=== PATIENT | male | born 1985 | race Caucasian/White ===

== ENCOUNTER 2016-09-19 00:09 | Emergency (ER) | payer OTHER ==
--- NOTE | 2016-09-19 02:11 | ED ORDER SUMMARY ---
..... Patient: ZULLY SUTTON OrderSheet [facility] VisitID: [id number] [place] [address] 31y, M Registration Date/Time: 09/19/2016 ORDER SHEET Weight: 58.9 kg (stated) Allergies: No Known Drug Allergy GENERAL ORDERS: UA-Culture if indicated Urgent (00:29 09/19/2016 EInderbitzen R.N. verbal order read back to Lexus OVALLES) (Ack 0:31 Elleekimana) (0:48 EInderbitzen R.N.) CBC w Diff Urgent (00:48 09/19/2016 EInderbitzen R.N. verbal order read back to Lexus OVALLES) (Ack 0:52 Joseegekimana) (1:14 EInderbitzen R.N.) BMP Urgent (00:48 09/19/2016 EInderbitzen R.N. verbal order read back to Lexus OVALLES) (Cancelled: Other0:49 EInderbitzen R.N.) CMP Urgent (00:50 09/19/2016 EInderbitzen R.N. verbal order read back to Lexus OVALLES) (Ack 0:52 Elleekimana) (1:14 EInderbitzen R.N.) Lipase Urgent (01:13 09/19/2016 Lexus OVALLES) (Ack 1:25 CHategekimana) (2:22 EInderbitzen R.N.) MEDICATION ORDERS: IV FLUIDS: ORDER SHEET NOTES: [Electronically signed by Staci Cutler R.N. (02:22 09/19/2016)] [Electronically signed by Leo Lawler MD (12:10 09/20/2016)] [Electronically locked/signed by Staci Cutler R.N. (02:22 09/19/2016)]
--- NOTE | 2016-09-19 02:11 | ED NURSING NOTES ---
Clinical Report - Nurses [place] [address] [place] [address] 09/19/2016 0:11 Patient: ZULLY SUTTON TRIAGE Triage time 00:Sep 19 2016. Acuity: LEVEL 3. Chief Complaint: ABDOMINAL PAIN. 00:22 09/19/16. SEPSIS SCREEN: Sepsis Screen. Negative (no infection suspected/documented). --00:22 Staci Cutler R.N. 00:22 09/19/16. BP: 114/80. HR: 70. RR: 16. O2 saturation: 100%. Temp: 97.4 F. Pain level now 10/10. --00:22 Staci Cutler R.N. Weight: 58.9 kg stated. Height/Length: 68 inches Per Patient. BMI: 19.7. --00:17 Staci Cutler R.N. Medications Ventolin HFA Inhalation. --00:17 Staci Cutler R.N. Allergies No Known Drug Allergy. --00:17 Staci Cutler R.N. Medication/allergy information source: the patient. --00:22 Staci Cutler R.N. History Arrived by private vehicle. Historian: patient. Accompanied by family. This started today. ( sudden onset right upper quadrant pain at 1930 , waxing and waining intensity. worse by driving, walking, movement). No nausea, vomiting, diarrhea, constipation or fever. Last oral intake by patient was (dinner). Treatment MAILING MACHINE OPERATOR: None. SOCIAL HX: Does not smoke less than 1 pack per day. Does not smoke cigarettes. History of drug use: marijuana. No alcohol use. No recent travel. No infectious disease exposure. No known contact with a sick individual. ABUSE ASSESSMENT: No report of abuse. SELF HARM ASSESSMENT: A self harm assessment was performed. The patient answered "no" to the question "Have you recently felt down, depressed, or hopeless?", "Have you noticed less interest or pleasure in doing things?", "Do you have thoughts of harming or killing yourself?", "Are you here because you tried to hurt yourself?", "Have you ever tried to hurt yourself before today?", "Have you recently had thoughts about harming or killing others?" and "Do you have any dangerous items in your possession?". NUTRITIONAL RISK ASSESSMENT: The nutritional risk assessment revealed no deficiencies. FUNCTIONAL ASSESSMENT: Functional assessment: no impairments noted. LEARNING NEEDS ASSESSMENT: The learning needs assessment revealed no barriers. SKIN INTEGRITY ASSESSMENT: Skin integrity risk assessment completed. No skin integrity risk identified. --00:22 Staci Cutler R.N. PROBLEMS: Asthma. --00:17 Staci Cutler R.N. ADDITIONAL SURGERIES: no known surgeries. Interventions ID band on patient. --00:22 Staci Cutler R.N. PHYSICAL ASSESSMENT 00:25 09/19/16. Ambulatory to room. GENERAL / NEURO / PSYCH: Alert. Oriented X 4. Appears in no acute distress. HEENT: Mucous membranes are pink. RESPIRATORY: Respirations not labored. Breath sounds within normal limits. CVS: Capillary refill less than 2 seconds. GI / : Abdomen soft. Abdominal tenderness in the right upper quadrant. Guarding present. Guarding present. No rebound tenderness, abdominal distention or mass present in the abdominal region. No nausea noted. SKIN: Skin is warm and dry. --00:25 Staci Cutler R.N. NURSING PROGRESS NOTES 00:25 09/19/16. The plan of care for this patient includes an assessment with efforts to address impairment of the gastrointestinal system. This plan of care was discussed with the patient. Patient gowned. Reassurance given. Patient identifiers checked. Call light placed in reach. Side rails up x 1. Bed placed in lowest position. Brakes of bed on. Patient ready for evaluation. --00:25 Staci Cutler R.N. 00:35 09/19/16. Patient ID band checked for patient name and birthdate: patient confirmed. Instructions provided to collect clean catch urine and patient verbalized understanding. Clean catch urine collected with return of yellow-colored clear urine; sample sent to lab for urinalysis. Specimen labeled in the presence of the patient. --00:44 Staci Cutler R.N. 00:35 09/19/2016 Site #1 started via IV in the right forearm with an 20g angiocath, with aseptic technique and good blood return; one attempt. Blood drawn: rainbow set. Labeled in the presence of the patient and sent to the lab. Saline lock flushed with 10 mL saline. --00:44 Staci Cutler R.N. 01:41 09/19/16. The patient is calm and resting quietly. --01:41 Staci Cutler R.N. 01:41 09/19/16. BP: 107/52. HR: 58. RR: 16. O2 saturation: 100%. Temp: 97.9 F. Pain level now 06/27. --01:41 Staci Cutler R.N. DISPOSITION / DISCHARGE 02:15 09/19/2016 Site #1 removed upon discharge. Catheter intact. Pressure dressing applied. --02:19 Staci Cutler R.NFrantz 02:17 09/19/16. Condition at departure: improved and stable. The goals identified in the patient's plan of care were met. No learning barriers present. Discharge instructions provided and reviewed with the patient. Reviewed referral to a primary care physician for followup and testing. Summary of care provided to patient via paper. Patient verbalized understanding. Written instructions provided in Ukrainian. The patient was discharged home and accompanied by beam warper. He left the Emergency Department ambulatory and via private vehicle. Commodities Broker driving. FALL RISK ASSESSMENT: Fall risk assessment completed. No fall risk identified. --02:20 Staci Cutler R.N. 01:39 09/19/16. BP: 107/52. HR: 58. RR: 16. O2 saturation: 100%. Temp: 97.9 F. Pain level now 06/27. 00:17 09/19/16. BP: 114/80. HR: 70. RR: 16. O2 saturation: 100%. Temp: 97.4 F. Pain level now 03/27. --02:20 Staci Cutler R.N. Departure time: 02:Sep 19 2016. --02:21 Staci Cutler R.N. Locked/Released at 09/19/2016 2:22 by Staci Cutler R.N.
--- NOTE | 2016-09-19 02:11 | ED NURSING NOTES ---
Clinical Report - Nurses [place] [address] [place] [address] 09/19/2016 0:11 Patient: ZULLY SUTTON TRIAGE Triage time 00:Sep 19 2016. Acuity: LEVEL 3. Chief Complaint: ABDOMINAL PAIN. 00:22 09/19/16. SEPSIS SCREEN: Sepsis Screen. Negative (no infection suspected/documented). --00:22 Staci Cutler R.N. 00:22 09/19/16. BP: 114/80. HR: 70. RR: 16. O2 saturation: 100%. Temp: 97.4 F. Pain level now 10/10. --00:22 Staci Cutler R.N. Weight: 58.9 kg stated. Height/Length: 68 inches Per Patient. BMI: 19.7. --00:17 Staci Cutler R.N. Medications Ventolin HFA Inhalation. --00:17 Staci Cutler R.N. Allergies No Known Drug Allergy. --00:17 Staci Cutler R.N. Medication/allergy information source: the patient. --00:22 Staci Cutler R.N. History Arrived by private vehicle. Historian: patient. Accompanied by family. This started today. ( sudden onset right upper quadrant pain at 1930 , waxing and waining intensity. worse by driving, walking, movement). No nausea, vomiting, diarrhea, constipation or fever. Last oral intake by patient was (dinner). 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 SOCIAL HX: Does not smoke less than 1 pack per day. Does not smoke cigarettes. History of drug use: marijuana. No alcohol use. No recent travel. No infectious disease exposure. No known contact with a sick individual. ABUSE ASSESSMENT: No report of abuse. SELF HARM ASSESSMENT: A self harm assessment was performed. The patient answered "no" to the question "Have you recently felt down, depressed, or hopeless?", "Have you noticed less interest or pleasure in doing things?", "Do you have thoughts of harming or killing yourself?", "Are you here because you tried to hurt yourself?", "Have you ever tried to hurt yourself before today?", "Have you recently had thoughts about harming or killing others?" and "Do you have any dangerous items in your possession?". NUTRITIONAL RISK ASSESSMENT: The nutritional risk assessment revealed no deficiencies. FUNCTIONAL ASSESSMENT: Functional assessment: no impairments noted. LEARNING NEEDS ASSESSMENT: The learning needs assessment revealed no barriers. SKIN INTEGRITY ASSESSMENT: Skin integrity risk assessment completed. No skin integrity risk identified. --00:22 Staci Cutler R.N. PROBLEMS: Asthma. --00:17 Staci Cutler R.N. ADDITIONAL SURGERIES: no known surgeries. Interventions ID band on patient. --00:22 Staci Cutler R.N. PHYSICAL ASSESSMENT 00:25 09/19/16. Ambulatory to room. GENERAL / NEURO / PSYCH: Alert. Oriented X 4. Appears in no acute distress. HEENT: Mucous membranes are pink. RESPIRATORY: Respirations not labored. Breath sounds within normal limits. CVS: Capillary refill less than 2 seconds. GI / : Abdomen soft. Abdominal tenderness in the right upper quadrant. Guarding present. Guarding present. No rebound tenderness, abdominal distention or mass present in the abdominal region. No nausea noted. SKIN: Skin is warm and dry. --00:25 Staci Cutler R.N. NURSING PROGRESS NOTES 00:25 09/19/16. The plan of care for this patient includes an assessment with efforts to address impairment of the gastrointestinal system. This plan of care was discussed with the patient. Patient gowned. Reassurance given. Patient identifiers checked. Call light placed in reach. Side rails up x 1. Bed placed in lowest position. Brakes of bed on. Patient ready for evaluation. --00:25 Staci Cutler R.N. 00:35 09/19/16. Patient ID band checked for patient name and birthdate: patient confirmed. Instructions provided to collect clean catch urine and patient verbalized understanding. Clean catch urine collected with return of yellow-colored clear urine; sample sent to lab for urinalysis. Specimen labeled in the presence of the patient. --00:44 Staci Cutler R.N. 00:35 09/19/2016 Site #1 started via IV in the right forearm with an 20g angiocath, with aseptic technique and good blood return; one attempt. Blood drawn: rainbow set. Labeled in the presence of the patient and sent to the lab. Saline lock flushed with 10 mL saline. --00:44 Staci Cutler R.N. 01:41 09/19/16. The patient is calm and resting quietly. --01:41 Staci Cutler R.N. 01:41 09/19/16. BP: 107/52. HR: 58. RR: 16. O2 saturation: 100%. Temp: 97.9 F. Pain level now 06/27. --01:41 Staci Cutler R.N. DISPOSITION / DISCHARGE 02:15 09/19/2016 Site #1 removed upon discharge. Catheter intact. Pressure dressing applied. --02:19 Staci Cutler R.NFrantz 02:17 09/19/16. Condition at departure: improved and stable. The goals identified in the patient's plan of care were met. No learning barriers present. Discharge instructions provided and reviewed with the patient. Reviewed referral to a primary care physician for followup and testing. Summary of care provided to patient via paper. Patient verbalized understanding. Written instructions provided in Nepali. The patient was discharged home and accompanied by acid patroller. He left the Emergency Department ambulatory and via private vehicle. Blindstitch Lapel Padder driving. FALL RISK ASSESSMENT: Fall risk assessment completed. No fall risk identified. --02:20 Staci Cutler R.N. 01:39 09/19/16. BP: 107/52. HR: 58. RR: 16. O2 saturation: 100%. Temp: 97.9 F. Pain level now 06/27. 00:17 09/19/16. BP: 114/80. HR: 70. RR: 16. O2 saturation: 100%. Temp: 97.4 F. Pain level now 03/27. --02:20 Staci Cutler R.N. Departure time: 02:Sep 19 2016. --02:21 Staci Cutler R.N. Locked/Released at 09/19/2016 2:22 by Staci Cutler R.N.
--- NOTE | 2016-09-19 02:11 | ED CLINICAL REPORT ---
Clinical Report - Physicians/Mid Levels [facility] [address] [place] [address] 09/19/2016 0:11 Patient: ZULLY SUTTON Time Seen: 01:10. HISTORY OF PRESENT ILLNESS Chief Complaint: ABDOMINAL PAIN. This started at 7 PM and is still present. It was abrupt in onset and has been waxing/waning. It is described as cramping and it is described as generalized in location. At its maximum, severity described as 10 / 10. When seen in the E.D., severity described as 1 / 10. Modifying factors- (Worse with movement.). No nausea or vomiting. (Better while waiting for ED evaluation). REVIEW OF SYSTEMS No constipation, black stools or stools or hematemesis. No difficulty with urination or urination, pain with urination, urinary frequency or fever. No double vision, mouth sores, chest pain, cough or difficulty breathing. No bloody stools, constipation, diarrhea, nausea or vomiting. No joint pain or skin rash. Last bowel movement: today. The patient has had abdominal pain. PAST HISTORY PCP: None Ops: None Hosp: None Illness: Asthma. Additional Surgeries: no known surgeries. Medications: Ventolin HFA Inhalation. Allergies: No Known Drug Allergy. SOCIAL HISTORY Never smoker. ADDITIONAL NOTES The nursing notes have been reviewed. PHYSICAL EXAM Vital Signs: 09/19/2016 01:41 BP: 107/52. HR: 58. RR: 16. O2 saturation: 100%. Temp: 97.9 F. 09/19/2016 00:22 BP: 114/80. HR: 70. RR: 16. O2 saturation: 100%. Temp: 97.4 F. Appearance: Alert. No acute distress. Eyes: Pupils equal, round and reactive to light. Eyes normal inspection. ENT: Pharynx normal. Neck: Normal inspection. Neck supple. CVS: Normal heart rate and rhythm. Heart sounds normal. Respiratory: No respiratory distress. Breath sounds normal. Abdomen: Soft and nontender. Bowel sounds normal. No organomegaly. No mass. Back: Normal inspection. : Normal genitalia. Testes descended. Skin: Skin warm. Normal skin color. No rash. Extremities: Extremities exhibit normal ROM. LABS, X-RAYS, AND EKG Laboratory Tests: UA-Culture if indicated: (STEPHEN: 09/19/2016 00:35) ( MsgRcvd 09/19/2016 00:57) Final results Test Result Flag Units (Reference) URINE COLOR YELLOW URINE APPEARANCE CLEAR URINE GLUCOSE NEGATIVE (NEGATIVE) URINE BILIRUBIN NEGATIVE (NEGATIVE) URINE KETONE 1+ (NEGATIVE) URINE SPECIFIC GRAVITY 1.015 (1.010-1.030) URINE PH 7.0 (5.0-8.0) URINE PROTEIN NEGATIVE (NEGATIVE) URINE UROBILINOGEN 0.2 EU/dL (0.2-1.0) URINE NITRITE NEGATIVE (NEGATIVE) URINE BLOOD NEGATIVE (NEGATIVE) URINE LEUK ESTERASE NEGATIVE (NEGATIVE) URINE RBC 0-1 rbc/hpf (0-1) URINE WBC 0-1 wbc/hpf (0-1) URINE EPITHELIAL CELLS 0-1 EPI/hpf (0-5) URINE BACTERIA NONE SEEN (NONE SEEN) URINE COMMENT CULT NOT INDICATED URINE CULTURES ARE SET-UP BASED ON THE FOLLOWING CRITERIA:POSITIVE NITRITEPOSITIVE LEUKOCYTE ESTERASEGREATER THAN 10 WHITE BLOOD CELLSMODERATE (2+) OR GREATER BACTERIA CBC w Diff: (STEPHEN: 09/19/2016 00:35) ( MsgRcvd 09/19/2016 00:54) Final results Test Result Flag Units (Reference) WHITE BLOOD COUNT 13.5 H K/uL (4.5-11.5) RED BLOOD COUNT 5.23 M/uL (4.50-5.90) HEMOGLOBIN 15.2 gm/dL (13.5-17.5) HEMATOCRIT 45.0 % (41.0-53.0) MEAN CELL VOLUME 86 fL (80-100) MEAN CORPUSCULAR HGB 29 pg (26-34) MEAN CORPUSCULAR HGB CONC 34 g/dL (31-37) RED CELL DISTRIBUTION WIDTH 13.1 % (11.6-14.8) PLATELET COUNT 220 K/uL (150-400) NEUTROPHIL % 66.5 % (50-75) LYMPH % 26.1 % (25-40) MONO % 5.1 % (3-14) EOSINOPHIL % 1.9 % (0-4) BASOPHIL % 0.4 % (0-2) Lipase: (STEPHEN: 09/19/2016 00:35) ( MsgRcvd 09/19/2016 01:22) Final results Test Result Flag Units (Reference) LIPASE 94 U/L (73-393) CMP: (STEPHEN: 09/19/2016 00:35) ( MsgRcvd 09/19/2016 01:05) Final results Test Result Flag Units (Reference) GLUCOSE 100 mg/dL (70-110) BUN 14 mg/dL (7-18) CREATININE 1.0 mg/dL (0.6-1.3) Estimated GFR >60 mL/min Estimated GFR- >60 mL/min Note: Persistent reduction over 3 months in eGFR<60 mL/min/1.73 m2 defines CKD. Patients with eGFR values>=60 mL/min/1.73 m2 may also have CKD if evidence ofpersistent proteinuria. Additional information may be foundat www.kidney.org. SODIUM 140 mmol/L (136-145) POTASSIUM 3.9 mmol/L (3.5-5.1) CHLORIDE 105 mmol/L (98-107) CARBON DIOXIDE 24 mmol/L (21-32) CALCIUM 9.2 mg/dL (8.5-10.1) TOTAL PROTEIN 7.6 g/dL (6.4-8.2) ALBUMIN 4.3 g/dL (3.3-5.0) BILIRUBIN, TOTAL 0.4 mg/dL (0.0-1.0) ALKALINE PHOSPHATASE 60 U/L (46-116) AST (SGOT) 21 U/L (15-37) ALT (SGPT) 26 U/L (12-78) . PROGRESS AND PROCEDURES Course of Care: Symptoms have completely resolved. No evidence of acute surgical abdomen at this time. CLINICAL IMPRESSION Abdominal pain of unknown cause. INSTRUCTIONS (RECHECK IN 12 HOURS IF PAIN PERSISTS.). Understanding of the discharge instructions verbalized by patient. Follow-up with: Eben Garcia MD, [facility], , [facility], [address] [place] [address] Follow up. Reason for referral: ESTABLISH PRIMARY CARE. (Electronically signed by Leo Lawler MD 09/20/2016 12:10)
--- NOTE | 2016-09-19 02:11 | ED ORDER SUMMARY ---
..... Patient: ZULLY SUTTON OrderSheet [facility] VisitID: [id number] [place] [address] 31y, M Registration Date/Time: 09/19/2016 ORDER SHEET Weight: 58.9 kg (stated) Allergies: No Known Drug Allergy GENERAL ORDERS: UA-Culture if indicated Urgent (00:29 09/19/2016 EInderbitzen R.N. verbal order read back to Lexus OVALLES) (Ack 0:31 Elleekimana) (0:48 EInderbitzen R.N.) CBC w Diff Urgent (00:48 09/19/2016 EInderbitzen R.N. verbal order read back to Lexus OVALLES) (Ack 0:52 Joseegekimana) (1:14 EInderbitzen R.N.) BMP Urgent (00:48 09/19/2016 EInderbitzen R.N. verbal order read back to Lexus OVALLES) (Cancelled: Other0:49 EInderbitzen R.N.) CMP Urgent (00:50 09/19/2016 EInderbitzen R.N. verbal order read back to Lexus OVALLES) (Ack 0:52 Elleekimana) (1:14 EInderbitzen R.N.) Lipase Urgent (01:13 09/19/2016 Lexus OVALLES) (Ack 1:25 CHategekimana) (2:22 EInderbitzen R.N.) MEDICATION ORDERS: IV FLUIDS: ORDER SHEET NOTES: [Electronically signed by Staci Cutler R.N. (02:22 09/19/2016)] [Electronically signed by Leo Lawler MD (12:10 09/20/2016)] [Electronically locked/signed by Staci Cutler R.N. (02:22 09/19/2016)]
--- NOTE | 2016-09-19 02:11 | ED CLINICAL REPORT ---
Clinical Report - Physicians/Mid Levels [facility] [address] [place] [address] 09/19/2016 0:11 Patient: ZULLY SUTTON Time Seen: 01:10. HISTORY OF PRESENT ILLNESS Chief Complaint: ABDOMINAL PAIN. This started at 7 PM and is still present. It was abrupt in onset and has been waxing/waning. It is described as cramping and it is described as generalized in location. At its maximum, severity described as 10 / 10. When seen in the E.D., severity described as 1 / 10. Modifying factors- (Worse with movement.). No nausea or vomiting. (Better while waiting for ED evaluation). REVIEW OF SYSTEMS No constipation, black stools or stools or hematemesis. No difficulty with urination or urination, pain with urination, urinary frequency or fever. No double vision, mouth sores, chest pain, cough or difficulty breathing. No bloody stools, constipation, diarrhea, nausea or vomiting. No joint pain or skin rash. Last bowel movement: today. The patient has had abdominal pain. PAST HISTORY PCP: None Ops: None Hosp: None Illness: Asthma. Additional Surgeries: no known surgeries. Medications: Ventolin HFA Inhalation. Allergies: No Known Drug Allergy. SOCIAL HISTORY Never smoker. ADDITIONAL NOTES The nursing notes have been reviewed. PHYSICAL EXAM Vital Signs: 09/19/2016 01:41 BP: 107/52. HR: 58. RR: 16. O2 saturation: 100%. Temp: 97.9 F. 09/19/2016 00:22 BP: 114/80. HR: 70. RR: 16. O2 saturation: 100%. Temp: 97.4 F. Appearance: Alert. No acute distress. Eyes: Pupils equal, round and reactive to light. Eyes normal inspection. ENT: Pharynx normal. Neck: Normal inspection. Neck supple. CVS: Normal heart rate and rhythm. Heart sounds normal. Respiratory: No respiratory distress. Breath sounds normal. Abdomen: Soft and nontender. Bowel sounds normal. No organomegaly. No mass. Back: Normal inspection. : Normal genitalia. Testes descended. Skin: Skin warm. Normal skin color. No rash. Extremities: Extremities exhibit normal ROM. LABS, X-RAYS, AND EKG Laboratory Tests: UA-Culture if indicated: (STEPHEN: 09/19/2016 00:35) ( MsgRcvd 09/19/2016 00:57) Final results Test Result Flag Units (Reference) URINE COLOR YELLOW URINE APPEARANCE CLEAR URINE GLUCOSE NEGATIVE (NEGATIVE) URINE BILIRUBIN NEGATIVE (NEGATIVE) URINE KETONE 1+ (NEGATIVE) URINE SPECIFIC GRAVITY 1.015 (1.010-1.030) URINE PH 7.0 (5.0-8.0) URINE PROTEIN NEGATIVE (NEGATIVE) URINE UROBILINOGEN 0.2 EU/dL (0.2-1.0) URINE NITRITE NEGATIVE (NEGATIVE) URINE BLOOD NEGATIVE (NEGATIVE) URINE LEUK ESTERASE NEGATIVE (NEGATIVE) URINE RBC 0-1 rbc/hpf (0-1) URINE WBC 0-1 wbc/hpf (0-1) URINE EPITHELIAL CELLS 0-1 EPI/hpf (0-5) URINE BACTERIA NONE SEEN (NONE SEEN) URINE COMMENT CULT NOT INDICATED URINE CULTURES ARE SET-UP BASED ON THE FOLLOWING CRITERIA:POSITIVE NITRITEPOSITIVE LEUKOCYTE ESTERASEGREATER THAN 10 WHITE BLOOD CELLSMODERATE (2+) OR GREATER BACTERIA CBC w Diff: (STEPHEN: 09/19/2016 00:35) ( MsgRcvd 09/19/2016 00:54) Final results Test Result Flag Units (Reference) WHITE BLOOD COUNT 13.5 H K/uL (4.5-11.5) RED BLOOD COUNT 5.23 M/uL (4.50-5.90) HEMOGLOBIN 15.2 gm/dL (13.5-17.5) HEMATOCRIT 45.0 % (41.0-53.0) MEAN CELL VOLUME 86 fL (80-100) MEAN CORPUSCULAR HGB 29 pg (26-34) MEAN CORPUSCULAR HGB CONC 34 g/dL (31-37) RED CELL DISTRIBUTION WIDTH 13.1 % (11.6-14.8) PLATELET COUNT 220 K/uL (150-400) NEUTROPHIL % 66.5 % (50-75) LYMPH % 26.1 % (25-40) MONO % 5.1 % (3-14) EOSINOPHIL % 1.9 % (0-4) BASOPHIL % 0.4 % (0-2) Lipase: (STEPHEN: 09/19/2016 00:35) ( MsgRcvd 09/19/2016 01:22) Final results Test Result Flag Units (Reference) LIPASE 94 U/L (73-393) CMP: (STEPHEN: 09/19/2016 00:35) ( MsgRcvd 09/19/2016 01:05) Final results Test Result Flag Units (Reference) GLUCOSE 100 mg/dL (70-110) BUN 14 mg/dL (7-18) CREATININE 1.0 mg/dL (0.6-1.3) Estimated GFR >60 mL/min Estimated GFR- >60 mL/min Note: Persistent reduction over 3 months in eGFR<60 mL/min/1.73 m2 defines CKD. Patients with eGFR values>=60 mL/min/1.73 m2 may also have CKD if evidence ofpersistent proteinuria. Additional information may be foundat www.kidney.org. SODIUM 140 mmol/L (136-145) POTASSIUM 3.9 mmol/L (3.5-5.1) CHLORIDE 105 mmol/L (98-107) CARBON DIOXIDE 24 mmol/L (21-32) CALCIUM 9.2 mg/dL (8.5-10.1) TOTAL PROTEIN 7.6 g/dL (6.4-8.2) ALBUMIN 4.3 g/dL (3.3-5.0) BILIRUBIN, TOTAL 0.4 mg/dL (0.0-1.0) ALKALINE PHOSPHATASE 60 U/L (46-116) AST (SGOT) 21 U/L (15-37) ALT (SGPT) 26 U/L (12-78) . PROGRESS AND PROCEDURES Course of Care: Symptoms have completely resolved. No evidence of acute surgical abdomen at this time. CLINICAL IMPRESSION Abdominal pain of unknown cause. INSTRUCTIONS (RECHECK IN 12 HOURS IF PAIN PERSISTS.). Understanding of the discharge instructions verbalized by patient. Follow-up with: Eben Garcia MD, [facility], , [facility], [address] [place] [address] Follow up. Reason for referral: ESTABLISH PRIMARY CARE. (Electronically signed by Leo Lawler MD 09/20/2016 12:10)
--- NOTE | 2016-09-20 12:11 | ED DISCHARGE INSTRUCTIONS ---
Patient: ZULLY SUTTON General Instructions [facility] VisitID: [id number] [place] [id number] 31y, M Registration Date/Time: 09/19/2016 Abdominal pain of unknown cause. INSTRUCTIONS (RECHECK IN 12 HOURS IF PAIN PERSISTS.). Understanding of the discharge instructions verbalized by patient. Follow-up with: Eben Garcia MD, [facility], , [facility], [address] [place] [address] Follow up. Reason for referral: ESTABLISH PRIMARY CARE. ADDITIONAL INFORMATION Abdominal Pain,Uncertain Cause [Male] Based on your visit today, the exact cause of your abdominalpain is not clear. Your exam and tests do not indicate a dangerous cause at this time. However, the signs of a serious problem may take more time to appear. Although your evaluation was reassuring today, sometimes early in the course of many conditions, exam and lab tests can appear normal. Therefore, it is important for you to watch for any new symptoms or worsening of your condition. Causes It may not be obvious what caused your symptoms. Pay attention to things that do seem to make your symptoms worse or better and discuss this with your doctor when you follow up. Diagnosis The evaluation of abdominal pain in the emergency department may onlyrequire an exam by the doctor or it may include blood, urine or imaging studies, depending on many factors. Sometimes exams and tests can identify a cause but in many cases, a clear cause is not found. Further testing at follow up visits may help to suggest a clear diagnosis. Home Care Rest as much as possible until your next exam. Try to avoid any medications (unless otherwise directed by your doctor), foods, activities, or other factors that you may have contributed to your symptoms. Try to eat foods that you know that you have tolerated well in the past. Certain diets may be recommended for some conditions that cause abdominal pain. However, since the cause of your symptoms may not be clear, discuss your diet more with your primary care provider or specialist for further recommendations. Eating several small meals per day as opposed to 2 or 3 larger meals may help. Monitor closely for anything that may make your symptoms worse or better. Pay close attention to symptoms below that may indicate worsening of your condition. Follow Up and Precautions See your doctoras instructed or sooneror if your symptoms are not improving.In some cases, you may need more testing. When to Seek Medical Attention Contact your doctor or see medical attention ifany of the following occur: Pain is becoming worse You are unable to take your medications due to excessive vomiting Swelling of the abdomen Fever of 100.4F (38C) or higher, or as directed by your health care provider Blood in vomit or bowel movements (dark red or black color) Jaundice (yellow color of eyes and skin) New onset of weakness, dizziness or fainting New onset of chest, arm, back, neck or jaw pain You have been given the following additional information: Abdominal Pain, Unknown Cause, (Male) (Electronically signed by Leo Lawler MD 09/20/2016 12:10)
--- NOTE | 2016-09-20 12:11 | ED MAR SUMMARY ---
..... Medication Administration Record [facility] [address] [place], [place] [id number] Patient: ZULLY SUTTON Visit ID: [id number] 31y, M Weight: 58.9 kg Height/Length: 68 in BMI: 19.7 ALLERGIES: No Known Drug Allergy
--- NOTE | 2016-09-20 12:11 | ED MED RECONCILIATION SUMMARY ---
Patient: ZULLY SUTTON Medication Reconciliation Report [facility] VisitID: [id number] [address] [place] [address] 31y, M Registration Date/Time: 09/19/2016 Weight: 58.9 kg Height/Length: 68 in. BMI: 19.7 ALLERGIES: No Known Drug Allergy The patient's Home Medications are listed below: THE FOLLOWING MEDICATIONS NEED TO BE RECONCILED: Ventolin HFA Inhalation The source(s) of the original Home Medication information: patient The following Medications were given to the patient in the Emergency Department: None. The following Medications were prescribed to the patient: None.
--- NOTE | 2016-09-20 12:11 | ED MAR SUMMARY ---
..... Medication Administration Record [facility] [address] [place], [place] [id number] Patient: ZULLY SUTTON Visit ID: [id number] 31y, M Weight: 58.9 kg Height/Length: 68 in BMI: 19.7 ALLERGIES: No Known Drug Allergy
--- NOTE | 2016-09-20 12:11 | ED MED RECONCILIATION SUMMARY ---
Patient: ZULLY SUTTON Medication Reconciliation Report [facility] VisitID: [id number] [address] [place] [address] 31y, M Registration Date/Time: 09/19/2016 Weight: 58.9 kg Height/Length: 68 in. BMI: 19.7 ALLERGIES: No Known Drug Allergy The patient's Home Medications are listed below: THE FOLLOWING MEDICATIONS NEED TO BE RECONCILED: Ventolin HFA Inhalation The source(s) of the original Home Medication information: patient The following Medications were given to the patient in the Emergency Department: None. The following Medications were prescribed to the patient: None.
--- NOTE | 2016-09-20 12:11 | ED DISCHARGE INSTRUCTIONS ---
Patient: ZULLY SUTTON General Instructions [facility] VisitID: [id number] [place] [id number] 31y, M Registration Date/Time: 09/19/2016 Abdominal pain of unknown cause. INSTRUCTIONS (RECHECK IN 12 HOURS IF PAIN PERSISTS.). Understanding of the discharge instructions verbalized by patient. Follow-up with: Eben Garcia MD, [facility], , [facility], [address] [place] [address] Follow up. Reason for referral: ESTABLISH PRIMARY CARE. ADDITIONAL INFORMATION Abdominal Pain,Uncertain Cause [Male] Based on your visit today, the exact cause of your abdominalpain is not clear. Your exam and tests do not indicate a dangerous cause at this time. However, the signs of a serious problem may take more time to appear. Although your evaluation was reassuring today, sometimes early in the course of many conditions, exam and lab tests can appear normal. Therefore, it is important for you to watch for any new symptoms or worsening of your condition. Causes It may not be obvious what caused your symptoms. Pay attention to things that do seem to make your symptoms worse or better and discuss this with your doctor when you follow up. Diagnosis The evaluation of abdominal pain in the emergency department may onlyrequire an exam by the doctor or it may include blood, urine or imaging studies, depending on many factors. Sometimes exams and tests can identify a cause but in many cases, a clear cause is not found. Further testing at follow up visits may help to suggest a clear diagnosis. Home Care Rest as much as possible until your next exam. Try to avoid any medications (unless otherwise directed by your doctor), foods, activities, or other factors that you may have contributed to your symptoms. Try to eat foods that you know that you have tolerated well in the past. Certain diets may be recommended for some conditions that cause abdominal pain. However, since the cause of your symptoms may not be clear, discuss your diet more with your primary care provider or specialist for further recommendations. Eating several small meals per day as opposed to 2 or 3 larger meals may help. Monitor closely for anything that may make your symptoms worse or better. Pay close attention to symptoms below that may indicate worsening of your condition. Follow Up and Precautions See your doctoras instructed or sooneror if your symptoms are not improving.In some cases, you may need more testing. When to Seek Medical Attention Contact your doctor or see medical attention ifany of the following occur: Pain is becoming worse You are unable to take your medications due to excessive vomiting Swelling of the abdomen Fever of 100.4F (38C) or higher, or as directed by your health care provider Blood in vomit or bowel movements (dark red or black color) Jaundice (yellow color of eyes and skin) New onset of weakness, dizziness or fainting New onset of chest, arm, back, neck or jaw pain You have been given the following additional information: Abdominal Pain, Unknown Cause, (Male) (Electronically signed by Leo Lawler MD 09/20/2016 12:10)
== END 2016-09-19 02:20 | disposition home or self-care (01) ==
LOC: ED SRH 00:09
DX: R10.84 Generalized abdominal pain (principal); Z79.51 Long term (current) use of inhaled steroids
CPT/HCPCS: 90004; 90100; 92235; 95059